=== PATIENT | male | born 1985 | race Caucasian/White ===

== ENCOUNTER 2022-08-06 13:52 | Inpatient (IN) ==
[2022-08-06] MEDS ORDERED: ONDANSETRON INJ 2 MG/ML 2 ML VIAL IV STA (14:21)
[2022-08-06] MEDS ORDERED: PIPERACILLIN/TAZOBACTAM 4.5 GM/120 ML BAG IV ONE (14:21)
[2022-08-06] MEDS ORDERED: MoRPHine SULFATE 4 MG/ML 1 ML CARP\\VIAL IV STA (14:21)
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
[2022-08-06 14:57] LABS: Basophils # (auto) 0.03 K/uL (0-0.2); Basophils % (auto) 0.2 %; Eosinophils # (auto) 0.08 K/uL (0-0.50); Eosinophils % (auto) 0.6 %; Hematocrit (blood only) 40.7 % (42.0-52.0); Hemoglobin 13.7 g/dl (14.0-18.0); Immature Granulocytes # (auto) 0.09 K/uL (0.01-0.20); Immature Granulocytes % (auto) 0.7 %; Lymphocytes # (auto) 1.53 K/uL (1.2-3.4); Lymphocytes % (auto) 11.4 %; Mean Corpuscular Hemoglobin 28.2 pg (25.0-34.0); Mean Corpuscular Hgb Conc 33.7 g/dL (32.0-36.0); Mean Corpuscular Volume 83.9 fL (80.0-100.0); Mean Platelet Volume 8.8 fL (9.4-12.4); Monocytes # (auto) 1.77 K/uL (0.11-0.59); Monocytes % (auto) 13.2 %; Neutrophils # (auto) 9.91 K/uL (1.40-6.50); Neutrophils % (auto) 73.9 %; Platelet Count 307 K/uL (130-400); RDW Coefficient of Variation 12.8 % (11.5-14.5); RDW Standard Deviation 39.1 fL (36.4-46.3); Red Blood Count 4.85 M/uL (4.70-6.10); White Blood Count 13.41 K/ul (4.8-10.8)
[2022-08-06 15:04] LABS: Albumin Globulin Ratio 1.3 (0.9-2); Albumin Level 3.9 gm/dl (3.4-5.0); BUN Creatinine Ratio 17.9 (10-20); Calcium 9.3 mg/dl (8.6-10.3); Creatinine Clr Calc Pharmacy 134.9 ml/min; Est GFR (African American) 142.3 ml/min; Est GFR (Non-African American) 122.8 ml/min; Potassium 3.9 mmol/L (3.5-5.1); Total Protein 6.9 gm/dl (6.0-8.3)
[2022-08-06] MEDS ORDERED: OPTIRAY 320 100ml IV ONE (15:42)
--- NOTE | 2022-08-06 16:00 | CT Scan Report ---
CT facial bones w con HISTORY: 37 years-old Male r facial abscess acute right facial pain with swelling COMPARISON: None TECHNIQUE: Multiple axial CT images of the facial bones were obtained following the intravenous admin istration of 88 mL Optiray 320. A dose lowering technique was used consistent with the principals of ALARA. FINDINGS: There is asymmetric enlargement with heterogeneity and increased enhancement of the right parotid gla nd. Subcentimeter intraparotid lymph nodes. There is adjacent subcutaneous edema with skin thickening . No discrete mass or fluid collection. Edema tracks along the right platysma. Submandibular lymph no jenny measure up to 9 mm. Bilateral cervical chain lymph nodes measure up to 10 mm.. Mild asymmetric en largement of the right masseter muscle. The imaged intracranial structures are unremarkable. The orbits and soft tissues are otherwise within normal limits. Patent airway. Mild enlargement with calcifications of the palatine tonsils. The vasc ulature is within normal limits. Mastoid air cells and paranasal sinuses appear clear. Mandibular non displaced fractures with ORIF changes. Right lateral maxillary incisor root canal changes. Biapical c yst of the right maxillary central incisor. IMPRESSION: 1. Asymmetric enlargement, heterogeneity and enhancement of the right parotid gland suggestive of reyes loadenitis. 2. Asymmetric enlargement of the right masseter muscle may represent reactive myositis with adjacent cellulitis. 3. No abscess. 4. Mild lymphadenopathy is likely reactive. 5. Nondisplaced mandibular fractures with ORIF changes. ACT 112: Negative or not required by law. The above report was generated using voice recognition software. It may contain grammatical, syntax o r spelling errors. Electronically signed by: Arvind Greer M.D. 08/06/2022 3:59 PM
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
[2022-08-06] MEDS ORDERED: ACETAMINOPHEN 1,000 MG/100 ML VIAL IV STA (19:12)
[2022-08-06] MEDS ORDERED: SODIUM CHLORIDE 0.9% 1000ML 1,000 ML IV ONE (19:12)
[2022-08-06] MEDS ORDERED: DAPTOmycin 250 MG in SYRINGE 0 ML IV ONE (19:30)
[2022-08-06] MEDS ORDERED: LACTATED RINGER'S 1,000 ML IV ONE (20:45)
[2022-08-06] MEDS: hydrOXYzine HCl 25 MG TAB PO SCH (22:17)
[2022-08-06] MEDS: PIPERACILLIN/TAZOBACTAM 4.5 GM in DEXTROSE 5% 100 ML IV SCH (22:23)
[2022-08-06] MEDS: LACTATED RINGER'S 1,000 ML IV SCH (22:28)
[2022-08-06] MEDS ORDERED: KETOROLAC TROMETHAMINE 15 MG/ML VIAL IV ONE (22:39)
[2022-08-07] MEDS: PIPERACILLIN/TAZOBACTAM 4.5 GM in DEXTROSE 5% 100 ML IV SCH ×3 (05:22→20:56)
[2022-08-07] MEDS: LACTATED RINGER'S 1,000 ML IV SCH ×2 (06:22→15:30)
[2022-08-07 07:06] LABS: Basophils # (auto) 0.02 K/uL (0-0.2); Basophils % (auto) 0.3 %; Eosinophils # (auto) 0.17 K/uL (0-0.50); Eosinophils % (auto) 2.3 %; Hematocrit (blood only) 37.6 % (42.0-52.0); Hemoglobin 12.5 g/dl (14.0-18.0); Immature Granulocytes # (auto) 0.05 K/uL (0.01-0.20); Immature Granulocytes % (auto) 0.7 %; Lymphocytes # (auto) 1.98 K/uL (1.2-3.4); Lymphocytes % (auto) 27.1 %; Mean Corpuscular Hemoglobin 28.4 pg (25.0-34.0); Mean Corpuscular Hgb Conc 33.2 g/dL (32.0-36.0); Mean Corpuscular Volume 85.5 fL (80.0-100.0); Mean Platelet Volume 8.6 fL (9.4-12.4); Monocytes # (auto) 1.16 K/uL (0.11-0.59); Monocytes % (auto) 15.9 %; Neutrophils # (auto) 3.92 K/uL (1.40-6.50); Neutrophils % (auto) 53.7 %; Platelet Count 261 K/uL (130-400); RDW Coefficient of Variation 12.7 % (11.5-14.5); RDW Standard Deviation 39.4 fL (36.4-46.3)
[2022-08-07 07:20] LABS: BUN Creatinine Ratio 14.9 (10-20); C Reactive Protein 2.14 mg/dl (0-0.5); Calcium 8.5 mg/dl (8.6-10.3); Creatinine Clr Calc Pharmacy 145.6 ml/min; Est GFR (African American) 136.6 ml/min; Est GFR (Non-African American) 117.8 ml/min; Potassium 4.2 mmol/L (3.5-5.1)
[2022-08-07] MEDS: ADVANCED PROBIOTIC 1250 MG CAPSULE PO SCH (08:03)
[2022-08-07] MEDS: ACETAMINOPHEN 1,000 MG/100 ML VIAL IV PRN ×2 (09:33→17:30)
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
[2022-08-07] MEDS: DAPTOmycin 250 MG in SYRINGE 0 ML IV SCH (20:56)
[2022-08-07] MEDS: hydrOXYzine HCl 25 MG TAB PO SCH (20:56)
[2022-08-07 21:23] LABS: Hematocrit (blood only) 38.2 % (42.0-52.0); Mean Corpuscular Hemoglobin 28.8 pg (25.0-34.0); Mean Corpuscular Volume 84.5 fL (80.0-100.0); Mean Platelet Volume 8.8 fL (9.4-12.4); Platelet Count 277 K/uL (130-400); RDW Coefficient of Variation 12.5 % (11.5-14.5); RDW Standard Deviation 38.5 fL (36.4-46.3); Red Blood Count 4.52 M/uL (4.70-6.10); White Blood Count 8.14 K/ul (4.8-10.8)
--- NOTE | 2022-08-07 22:10 | Hospitalist Progress Note ---
Date of Service August 07, 2022 Assessment & Plan (1) Facial infection: Plan: Anaphylaxis allergy to penicillin as a child however he was given Zosyn in the ER without any allergic reaction Given lack of reaction will continue on Zosyn. Add daptomycin given purulent nature for MRSA coverage. Consult oromaxillofacial surgery: plan is to continue IV antibiotics over the next 48 hours to view improvement. culture ordered for purulent fluid from mouth. INput from Dr. Garcia: If after 2-3 days we see improvement then we can consider discharge with either oral or IV antibiotics vis PICC line. If after 2-3 days little improvement noted I will need to take to OR to wash out the surgical sites and maintain IV antibiotics longer until we see resolution and then consider discharge with either oral or PICC antibiotics. Please review his note for further details. (2) Sialoadenitis: Plan: Diet placed'IVF discontinued (3) Anxiety: Plan: Continue hydroxyzine Plan VTE Prophylaxis - Low risk Disposition - admit to med/surg Admission and Anticipated Discharge Date Admission Date: August 06, 2022 Subjective Patient reports having pain on his face. He states he feels the swelling is worsening. Review of Systems Review of Systems: All systems reviewed & are unremarkable except as noted in HPI & below Physical Exam Constitutional: WD/WN, vitals as above Respiratory: normal respiratory effort, lungs clear to auscultation Cardiovascular: RRR, no murmur, no edema Gastrointestinal (Abdomen): normal bowel sounds, soft, nontender, no hepatosplenomegaly Neurologic: moves all extremities and awake; not confused Psychiatric: A+Ox3, euthymic affect Lymphatic: + cervical lymphadenopathy (anterior) Results & Data Results & Data Vital Signs (Past 12 Hours) Vital Signs Temp Pulse Resp BP Pulse Ox O2 Del Method 08/07/22 20:52 36.9 C 58 L 18 107/79 96 Room Air 08/07/22 15:17 36.5 C 69 18 114/75 98 Room Air PG Care Time/CCT Total # of Minutes Spent Total Time Spent with Patient: Total time spent is greater than 50% in coordination of care (as documented) at patient's floor/unit and/or counseling patient: Coding Level of Care Code 68001 SUB INP/OBS CARE 2/35MIN Diagnoses Facial infection L08.9 Sialoadenitis K11.20 Anxiety F41.9
[2022-08-08] MEDS: PIPERACILLIN/TAZOBACTAM 4.5 GM in DEXTROSE 5% 100 ML IV SCH ×3 (05:30→21:10)
[2022-08-08] MEDS: ACETAMINOPHEN 1,000 MG/100 ML VIAL IV PRN ×2 (07:37→16:48)
--- NOTE | 2022-08-08 09:26 | Hospitalist Progress Note ---
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 Add daptomycin given purulent nature for MRSA coverage. Consult oromaxillofacial surgery:08/07/22 Dr Garcia discussed care with Dr Owusu (chair Oral Maxillofacial Surgery at [facility]) after discussion no need to transfer to [facility] IV antibiotics and local Peridex rinsing 3 x a day is the treatment of choice. Consider Infectious disease consult if PICC line is planned Need to check with [facility] regarding PICC line in the facility. Continue IV antibiotics with present Meds Daptomycin and Zosyn add Peridex mouth rinse and tooth brushing to help maintain optimal oral hygiene. If after 2-3 days we see improvement then we can consider discharge with either oral or IV antibiotics vis PICC line. If after 2-3 days little improvement noted I will need to take to OR to wash out the surgical sites and maintain IV antibiotics longer until we see resolution and then consider discharge with either oral or PICC antibiotics. Blood cultures negative at this time, fluid culture is pending (2) Sialoadenitis: (3) Anxiety: Plan: Continue hydroxyzine Plan VTE Prophylaxis - Low risk Disposition - admit to med/surg Admission and Anticipated Discharge Date Admission Date: August 06, 2022 Subjective Patient states he feels much better he is having a nonchewable diet which is a big help he is getting chemical soft diet at the present but still needed to chew parts of it. Facial swelling is down no fevers Physical Exam Physical Exam: Patient is difficulty opening his mouth however his jaw is much less swollen only from description there is no fluctuance there is no lymphadenopathy about his cervical chain Results & Data Results & Data Vital Signs (Past 12 Hours) Vital Signs Temp Pulse Resp BP Pulse Ox O2 Del Method 08/08/22 08:32 98.4 F 58 L 16 113/72 95 Room Air Laboratory Results Reviewed CBC Reviewed C-reactive protein PG Care Time/CCT Total # of Minutes Spent Total Time Spent with Patient: Total time spent is greater than 50% in coordination of care (as documented) at patient's floor/unit and/or counseling patient: Coding Level of Care Code 18282 SUB INP/OBS CARE 2/35MIN Diagnoses Facial infection L08.9 Sialoadenitis K11.20 Anxiety F41.9
[2022-08-08] MEDS: CHLORHEXIDINE GLUCONATE 0.12% 480 ML MT PRN ×2 (09:35→21:10)
[2022-08-08] MEDS: ENOXAPARIN INJ 40 MG/0.4 ML SYR SQ SCH (09:37)
[2022-08-08] MEDS: ADVANCED PROBIOTIC 1250 MG CAPSULE PO SCH (09:39)
--- NOTE | 2022-08-08 11:03 | Oral/Maxillofacial Progress Nt ---
Date of Service August 08, 2022 Assessment & Plan Admission and Anticipated Discharge Date Admission Date: August 06, 2022 Subjective Today Nicho is doing much better. The right side infection has responded very well to the IV antibiotics, oral care and Peridex. The left side intraoral infection is also much improved - there is less drainage and the mucosal tissue is starting to granulate over. I will check on patient tomorrow if he continues to improve I see no reason why he can`t be discharged back to the facility. I would suggest IV antibiotics for at least 10 days. I would see him as an outpatient in 7-8 days and if the infection is fully resolved we could end the IV antibiotics. If still some drainage I will consider more IV therapy of other treatment based on my findings at that time. Results & Data Vital Signs (Past 12 Hours) Vital Signs Temp Pulse Resp BP Pulse Ox O2 Del Method 08/08/22 08:32 36.9 C 58 L 16 113/72 95 Room Air PG Care Time/CCT Total # of Minutes Spent Total Time Spent with Patient: Total time spent is greater than 50% in coordination of care (as documented) at patient's floor/unit and/or counseling patient: Coding Level of Care Code None Diagnoses
[2022-08-08] MEDS: DAPTOmycin 250 MG in SYRINGE 0 ML IV SCH (21:08)
[2022-08-08] MEDS: hydrOXYzine HCl 25 MG TAB PO SCH (21:24)
[2022-08-09] MEDS: CHLORHEXIDINE GLUCONATE 0.12% 480 ML MT PRN (00:48)
[2022-08-09] MEDS: PIPERACILLIN/TAZOBACTAM 4.5 GM in DEXTROSE 5% 100 ML IV SCH ×3 (05:50→20:07)
[2022-08-09] MEDS: ADVANCED PROBIOTIC 1250 MG CAPSULE PO SCH (08:59)
[2022-08-09] MEDS: ENOXAPARIN INJ 40 MG/0.4 ML SYR SQ SCH (09:00)
--- NOTE | 2022-08-09 16:31 | Hospitalist Progress Note ---
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 Add daptomycin given purulent nature for MRSA coverage. Consult oromaxillofacial surgery:08/07/22 Dr Garcia discussed care with Dr Owusu (chair Oral Maxillofacial Surgery at [facility]) after discussion no need to transfer to [facility] IV antibiotics and local Peridex rinsing 3 x a day is the treatment of choice. Consider Infectious disease consult if PICC line is planned Need to check with [facility] regarding PICC line in the facility. Continue IV antibiotics with present Meds Daptomycin and Zosyn add Peridex mouth rinse and tooth brushing to help maintain optimal oral hygiene. If after 2-3 days we see improvement then we can consider discharge with either oral or IV antibiotics vis PICC line. If after 2-3 days little improvement noted I will need to take to OR to wash out the surgical sites and maintain IV antibiotics longer until we see resolution and then consider discharge with either oral or PICC antibiotics. Blood cultures negative at this time, fluid culture is pending (2) Sialoadenitis: (3) Anxiety: Plan: Continue hydroxyzine Plan VTE Prophylaxis - Low risk Disposition - admit to med/surg Admission and Anticipated Discharge Date Admission Date: August 06, 2022 Subjective Patient continues to feel much better he is having a soft diet which is a big help he is getting chemical soft diet at the present but still needed to chew parts of it. Facial swelling is down no fevers I spoke to Dr Nieto at the [facility] and they will not have antibiotics until 08/10/22 Physical Exam Physical Exam: Patient is difficulty opening his mouth however his jaw continues to be less swollen only from description there is no fluctuance there is no lymphadenopathy about his cervical chain Results & Data Results & Data Vital Signs (Past 12 Hours) Vital Signs Temp Pulse Resp BP Pulse Ox O2 Del Method 08/09/22 15:57 98.2 F 60 16 123/81 96 Room Air 08/09/22 07:47 98.1 F 54 L 16 111/76 97 Room Air PG Care Time/CCT Total # of Minutes Spent Total Time Spent with Patient: Total time spent is greater than 50% in coordination of care (as documented) at patient's floor/unit and/or counseling patient: Coding Level of Care Code 51361 SUB INP/OBS CARE Diagnoses Facial infection L08.9 Sialoadenitis K11.20 Anxiety F41.9
[2022-08-09] MEDS: ACETAMINOPHEN 500 MG TAB PO PRN (16:39)
[2022-08-09] MEDS: hydrOXYzine HCl 25 MG TAB PO SCH (20:07)
[2022-08-09] MEDS: DAPTOmycin 250 MG in SYRINGE 0 ML IV SCH (20:07)
[2022-08-10] MEDS: PIPERACILLIN/TAZOBACTAM 4.5 GM in DEXTROSE 5% 100 ML IV SCH ×2 (05:12→12:14)
[2022-08-10] MEDS: ENOXAPARIN INJ 40 MG/0.4 ML SYR SQ SCH (08:30)
[2022-08-10] MEDS: ADVANCED PROBIOTIC 1250 MG CAPSULE PO SCH (08:30)
[2022-08-10] MEDS: ACETAMINOPHEN 500 MG TAB PO PRN (08:32)
[2022-08-10 10:02] LABS: A calco-baum cmplx NotReported Not Detected (NotDetected); Bact fragilis Not Reported Not Detected (NotDetected); Efaecalis Not Reported Not Detected (NotDetected); Efaecium Not Reported Not Detected (NotDetected); Enterobacterales Not Reported Not Detected (NotDetected); Lmonocyt Not Reported Not Detected (NotDetected); Staph lugdunensis Not Reported Not Detected (NotDetected); Staph spp. Not Reported Not Detected (NotDetected); Staphaureus Not Reported Not Detected (NotDetected); Staphepi Not Reported Not Detected (NotDetected); Strep agal(GrpB) Not Reported Not Detected (NotDetected); Strep pneum Not Reported Not Detected (NotDetected); Strep pyog (GrpA) Not Reported Not Detected (NotDetected); Strep spp Not Reported Not Detected (NotDetected)
[2022-08-10 10:03] LABS: C auris Not Reported Not Detected (NotDetected); Calbicans Not Reported Not Detected (NotDetected); Candida glabrata Not Reported Not Detected (NotDetected); Candida krusei Not Reported Not Detected (NotDetected); Cneoformans/gatti Not Reported Not Detected (NotDetected); Cparapsilosis Not Reported Not Detected (NotDetected); Ctropicalis Not Reported Not Detected (NotDetected); E cloacae compx Not Reported Not Detected (NotDetected); Escherichia coli Not Reported Not Detected (NotDetected); H influenzae Not Reported Not Detected (NotDetected); K aerogenes Not Reported Not Detected (NotDetected); Koxytoca Not Reported Not Detected (NotDetected); Kpneumoniae grp Not Reported Not Detected (NotDetected); N meningitidis Not Reported Not Detected (NotDetected); P aeruginosa Not Reported Not Detected (NotDetected); Proteus spp Not Reported Not Detected (NotDetected); Salmonella spp Not Reported Not Detected (NotDetected); Smarcescens Not Reported Not Detected (NotDetected); Stenmaltophilia Not Reported Not Detected (NotDetected)
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
--- NOTE | 2022-08-11 12:33 | Pharmacy Report ---
ED Pharmacist Progress Note - ED Pharmacist Progress Note Date of Service:: August 11, 2022 Notes:: Forwarded critical result by ED Charge- blood culture from 08/06 one of two set growing gram positive bacilli. BCID2 result negative. Result is a corynebacterium species. This information was relayed to the on-call [facility] hospitalist who reviewed as patient discharged from their service. No further ED action.
== END 2022-08-10 16:44 | DRG 863 ==
LOC: ED 13:52 → 3W 19:22 → SUATTDRO 19:22 → 3W 20:11